=== PATIENT | male | born 1960 | race Caucasian/White ===

== ENCOUNTER 2020-12-04 08:59 | Emergency (ER) | payer MEDICAID ==
[~2020-12-04] VITALS: Ht 172.7 cm; Wt 95.3 kg
--- NOTE | 2020-12-04 09:20 | NUR ---
Pt. brought to bed #8, report rec'd from Alvaro
[2020-12-04 09:26] VITALS: BP_SYST 184
--- NOTE | 2020-12-04 09:35 | NUR ---
pt. bib care worker from [facility] living facility, for c/o chest pain 09/15, pt states already feels better, accu check done 244
--- NOTE | 2020-12-04 09:37 | NUR ---
ER at bedside examining patient.
[2020-12-04] MEDS ORDERED: cloNIDine HCL 0.1 MG TABLET PO ONE (09:45)
[2020-12-04] MEDS ORDERED: LISI40TA13 PO (10:14)
[2020-12-04 10:34] VITALS: BP_SYST 165
--- NOTE | 2020-12-04 10:35 | NUR ---
Patient given written and verbal discharge instructions and verbalizes understanding. discussed with patient the results and treatment provided. Patient in stable condition. ID arm band removed. Rx of lisinopril given. Patient educated on pain management and to follow up with PMD. Pain Scale 0. Opportunity for questions provided and answered. Medication side effect fact sheet provided.
== END 2020-12-04 10:34 | disposition home or self-care (01) ==
LOC: SED 08:59
DX: I16.0 Hypertensive urgency (principal); E11.9 Type 2 diabetes mellitus without complications; Z79.899 Other long term (current) drug therapy
CPT/HCPCS: 82962; 93005; 99283